=== PATIENT | female | born 1980 | race Caucasian/White ===

== ENCOUNTER 2025-01-09 22:55 | Emergency (ER) | payer MEDICAID, SELFPAY ==
[2025-01-09 22:59] VITALS: BMI 23.1
[2025-01-09 23:29] VITALS: BP 122/76; PULSE 102; RESP 18; TEMP 36.9; O2SAT 98
--- NOTE | 2025-01-09 23:32 | XR_ITS ---
Examination: Abdomen AP single view Technique: AP portable supine abdomen, single view Exam date and time: January 09, 2025 11:58 PM INDICATIONS: History foreign body in the rectum FINDINGS: No opaque foreign body depicted Abundant stool throughout the colon IMPRESSION: No opaque foreign body depicted
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
[2025-01-09 23:46] LABS: Collection Type, Urine Clean Catch
[2025-01-09 23:56] LABS: Basophils # (Auto) 0.1 Thou/mm3 (0.0-0.2); Basophils % (Auto) 1 % (0-2.5); Eosinophils # (Auto) 0.2 Thou/mm3 (0.0-0.5); Eosinophils % (Auto) 2 % (0-10); Hematocrit 36.5 % (36.0-46.0); Hemoglobin 12.2 g/dL (12.0-16.0); Immature Granulocytes % (Auto) 0 % (0-0); Immature Granulocytes Auto 0.02 Thou/mm3 (0.00-0.00); Lymphocytes # (Auto) 4.3 Thou/mm3 (1.0-4.8); Lymphocytes % (Auto) 47 % (10-50); Mean Corpuscular HGB Conc 33.4 g/dl (31.0-37.0); Mean Corpuscular Hemoglobin 32.3 pg (25.0-35.0); Mean Corpuscular Volume 97 fL (80-100); Monocytes # (Auto) 0.7 Thou/mm3 (0.0-0.8); Monocytes % (Auto) 7 % (0-12); Neutrophils # (Auto) 3.9 Thou/mm3 (1.8-7.7); Neutrophils % (Auto) 43 % (37-80); Nucleated Red Blood Cell % 0 /100 WBC (0); Platelet Count 273 Thou/mm3 (140-440); RDW Standard Deviation 47.6 fL (36.4-46.3); Red Blood Count 3.78 Miln/mm3 (4.00-5.20); White Blood Count 9.3 Thou/mm3 (3.6-11.0)
[2025-01-09 23:58] LABS: HCG Qualitative,Urine Negative
[2025-01-10 00:13] LABS: Bilirubin,Urine Negative (Negative); Blood,Urine Negative (Negative); Clarity,Urine Clear (Clear/Hazy); Color,Urine Lt-Yellow (Lt Yel-Yel); Culture Indicated,Urine Not Indicated; Glucose, Urine Negative (Negative); Ketones,Urine Negative (Negative); Leukocyte Esterase,Urine Negative (Negative); Nitrite,Urine Negative (Negative); PH,Urine 6.5 (5.0-7.0); Protein,Urine Negative (Neg - Trace); RBC,Urine < 1 /hpf (0-3); Squamous Epithelial Cell,Urine 1 /hpf (0-5); Urobilinogen,Urine Negative mg/dL (0.0-1.0); WBC,Urine 1 /hpf (0-5)
[2025-01-10 00:15] LABS: Alanine Aminotransferase 43 U/L (10-49); Albumin, Serum 3.9 gm/dL (3.5-5.0); Albumin/Globulin Ratio 1.7 (1.2-2.2); Alkaline Phosphatase 110 U/L (46-116); Anion Gap 6 (7-16); Aspartate Amino Transferase 38 U/L (0-34); BUN/Creatinine Ratio 11 Ratio (12-20); Bilirubin,Total 0.3 mg/dL (0.3-1.2); Blood Urea Nitrogen 10 mg/dL (9-23); Calcium 8.1 mg/dL (8.3-10.6); Calcium (Corrected) 8.2 mg/dL (8.5-10.1); Carbon Dioxide 25.9 mMol/L (20.0-31.0); Chloride 111 mMol/L (98-107); Creatinine (Component) 0.9 mg/dL (0.6-1.3); Estimated Creatinine Clearance 70.3 mL/min (>60); Globulin 2.3 gm/dL (2.3-3.5); Glucose 96 mg/dL (74-106); Osmolality,Calculated 283 (275-295); Potassium 3.7 mMol/L (3.4-5.1); Sodium 143 mMol/L (136-145); Total Protein 6.2 gm/dL (5.7-8.2); eGFR > 60 See Note
[2025-01-10 00:17] LABS: INR 0.9 (0.9-1.3); Partial Thromboplastin Time 27.6 Seconds (22.0-36.0); Prothrombin Time 10.4 Seconds (9.0-12.2)
--- NOTE | 2025-01-10 01:23 | PRELIM_ITS ---
Radiograph of the abdomen (single Upright AP,view). January 09, 2025 2358 hours Clinical history: Vibrator in rectum No prior study is available for comparison. Findings: No radio-opaque foreign body or abnormal calcifications in abdomen and pelvis.The bowel gas pattern is nonspecific. Moderate amount of fecal material is noted in the colon. The osseous structures are unremarkable. Impression: No radio-opaque foreign body. Moderate constipation. Report Electronically Signed By: Anthony Pro 01/10/2025 1:22:46 AM [EST]
--- NOTE | 2025-01-10 01:23 | XR_ITS ---
Examination: CT abdomen and pelvis without contrast. Coronal 3-D reconstructions. Sagittal 2-D reconstructions. Date and time of exam:January 10, 2025 0156 hours, comparison February 01, 2012 INDICATIONS: History vibrator inside rectum 2 days CTDI: vol (mGy): 5.45 DLP: (mGycm): 280 Technique: Axial images of the abdomen have been obtained, 3 mm slice thickness Intravenous contrast material has not been administered. Low dose protocols were performed. One or more of the following dose reduction techniques were used; automated exposure control, adjustment of the mA and/or KV according to patient size, use of iterative reconstruction technique. Findings: No focal liver or splenic lesion Contracted gallbladder No pancreatic or adrenal mass No renal or ureteral calculi, no hydronephrosis Abundant stool throughout the colon Absent appendix Scattered colonic diverticulosis, no diverticulitis No foreign body in the rectosigmoid IMPRESSION: No foreign body in the rectum
--- NOTE | 2025-01-10 03:43 | PRELIM_ITS ---
CT scan of the abdomen and pelvis without intravenous contrast (axial sections with sagittal and coronal reformats) January 10, 2025 0156 hours Clinical History: Vibrator in rectum, xr neg Comparison: No prior study is available for comparison. Findings: The lung bases are clear. The liver, gallbladder, pancreas, spleen, kidneys and adrenals are unremarkable on this noncontrast study. No evidence of bowel obstruction. Status post appendicectomy. There is no mesenteric or retroperitoneal adenopathy. The urinary bladder is unremarkable. There is no free fluid or free air. The osseous structures are unremarkable. Fecal loading. Diverticulosis of the colon. The uterus and ovaries are within normal limits. No evidence of foreign bodies within the colon or rectum. Impression: Fecal loading. No evidence of foreign bodies within the colon or rectum. Report Electronically Signed By: Joe Dacosta 01/10/2025 3:42:39 AM [EST]
[2025-01-10 03:52] VITALS: RESP 16
== END 2025-01-10 03:53 | disposition home or self-care (01) ==
PROVIDERS: Physician Assistant; Emergency Provider Emergency Medicine
DX: Z04.89 Encounter for examination and observation for other specified reasons (principal); R10.9 Unspecified abdominal pain
CPT/HCPCS: 36415; 74018; 74176; 80053; 81001; 81025; 85025; 85610; 85730; 99284